=== PATIENT | female | born 2000 | race Caucasian/White ===

== ENCOUNTER 2021-03-21 09:55 | Inpatient (IN) ==
--- NOTE | 2021-03-21 13:27 | Anesthesiology Consultation ---
Date of Service March 21, 2021 Assessment & Plan Chart Review Chart Review: Acceptable Risk for Surgery and Patient NOT seen in Pre Admission Testing Consults Requested none ASA [id number] Proposed Anesthesia Anesthesia Type: Spinal History Height/Weight Height: 5 ft 8 in Weight: 77.111 kg Allergies Allergy/AdvReac Type Severity Reaction Status Date / Time cat dander Allergy Intermediate Itchy Verified 03/13/21 12:56 watery eyes and sneezing dog dander Allergy Intermediate Itchy Verified 03/13/21 12:56 watery eyes and sneezing house dust mite Allergy Intermediate Asthma Verified 03/13/21 12:56 exacerbation Medications Home Medications Medication Instructions Recorded Confirmed Last Taken vit no.133-ferrous 1 tab PO DAILY 12/29/20 03/21/21 03/12/21 09:00 fumarate 28 mg-folic acid 800 mcg tablet () ondansetron HCl 4 mg tablet 4 mg PO Q6H PRN 03/13/21 03/21/21 03/13/21 11:00 (Zofran) sertraline 25 mg tablet (Zoloft) 25 mg PO DAILY 03/13/21 03/21/21 03/20/21 Past Medical History Medical History Anxiety and depression zoloft and medical marijuana Asthma Right-sided chest wall pain Exercise / Class Metabolic Activity II 4-5 Yardwork/Stairs/Walk up hill Past Family History Family History Other Family history normal Past Surgical History Surgical History History of tonsillectomy Hx laparoscopic cholecystectomy 2019 Past Anesthesia History No Hx of Anesthesia Complications and No Family Hx of Anesthesia Complications History of PONV No Hx of PONV and No Hx of Motion Sickness Social History Smoking Status: Current every day smoker tobacco type: e-cigarettes Smoking cigarettes per day: vapes several times a day Hx Alcohol Use: No Hx Substance Use: No substance use type: marijuana Substance Use Type Other:: medical marijuana Last Used Substance: Days (ago) Last Used Substance Other:: 03/13/21 Physical Exam Vital Signs Last Vital Signs Temp 36.9 C 03/21/21 10:41 Pulse 69 03/21/21 13:23 Resp 20 03/21/21 11:30 BP 118/68 03/21/21 13:04 Pulse Ox 96 03/21/21 13:23
[2021-03-21] MEDS ORDERED: LACTATED RINGER'S 1,000 ML IV ONE (13:30)
[2021-03-21] MEDS ORDERED: LACTATED RINGER'S 1,000 ML IV SCH (14:15)
[2021-03-21] MEDS ORDERED: CITRIC ACID/SODIUM CITRATE 15 ML UDC ONE (14:20)
[2021-03-21 14:22] LABS: Basophils # (auto) 0.01 K/uL (0-0.2); Basophils % (auto) 0.1 %; Eosinophils # (auto) 0.05 K/uL (0-0.5); Eosinophils % (auto) 0.4 %; Hematocrit (blood only) 32.6 % (37-47); Hemoglobin 10.8 g/dL (12.0-16.0); Immature Granulocytes # (auto) 0.03 K/uL (0.00-0.02); Immature Granulocytes % (auto) 0.2 %; Lymphocytes # (auto) 1.57 K/uL (1.2-3.4); Mean Corpuscular Hemoglobin 29.7 pg (25-34); Mean Corpuscular Volume 89.6 fL (80-100); Mean Platelet Volume 10.2 fL (7.4-10.4); Monocytes # (auto) 0.61 K/uL (0.11-0.59); Neutrophils # (auto) 9.85 K/uL (1.4-6.5); Neutrophils % (auto) 81.3 %; Platelet Count 234 K/uL (130-400); RDW Coefficient of Variation 13.8 % (11.5-14.5); RDW Standard Deviation 44.9 fL (36.4-46.3); Red Blood Count 3.64 M/uL (4.2-5.4); White Blood Count 12.12 K/uL (4.8-10.8)
[2021-03-21] MEDS ORDERED: OXYTOCIN 10 UNITS/ML VIAL ONE ×3 (14:25→14:56)
[2021-03-21] MEDS ORDERED: PHENYLEPHRINE 100MCG/ML 5ML SYR ONE (14:25)
[2021-03-21] MEDS ORDERED: fentaNYL citrate 100 MCG/2 ML VIAL ONE (14:25)
[2021-03-21] MEDS ORDERED: MoRPHine SULFATE PF 1 MG/ML 10 ML AMP/VIAL ONE (14:26)
[2021-03-21 14:30] LABS: Mean Corpuscular Hgb Conc 33.1 g/dL (32-36)
[2021-03-21] MEDS ORDERED: ceFAZolin 2000MG 2,000 MG/15 ML SYR IV SCH (14:30)
[2021-03-21] MEDS ORDERED: CITRIC ACID/SODIUM CITRATE 15 ML UDC PO SCH (14:30)
[2021-03-21] MEDS ORDERED: ONDANSETRON INJ 2 MG/ML 2 ML VIAL ONE (15:04)
[2021-03-21] MEDS ORDERED: DEXAMETHASONE SOD INJ 4 MG/ML VIAL ONE (15:05)
[2021-03-21] MEDS ORDERED: PROMETHAZINE HCL INJ 25 MG/ML 1 ML VIAL ONE (15:07)
[2021-03-21] MEDS ORDERED: miSOPROStoL 200 MCG TAB ONE (15:29)
[2021-03-21 15:37] LABS: Base Excess Cord Arterial Bld -1.9 mEq/L (-9-1.8); CO2 Cord Arterial Blood 44 mmHg (39.1-73.5); HCO3 Cord Arterial Blood 24 mmol/L (19.7-28.5); PO2 Cord Arterial Blood 19 mmHg (4.1-31.7); pH Cord Arterial Blood 7.35 (7.1-7.38)
[2021-03-21 15:40] LABS: Base Excess Cord Venous Blood -1.3 mEq/L (-7.7-1.9); Cord Venous Blood HCO3 25 mmol/L (18.4-26.8); Cord Venous Blood PCO2 48 mmHg (30.4-57.2); Cord Venous Blood PO2 18 mmHg (14.1-43.3); Cord Venous Blood pH 7.34 (7.20-7.44)
[2021-03-21] MEDS ORDERED: NALOXONE HCL 1 MG in SODIUM CHLORIDE 0.9% 1000ML 1,000 ML IV PRN (15:40)
[2021-03-21] MEDS ORDERED: PROMETHAZINE HCL 25 MG in SODIUM CHLORIDE 0.9% 50 ML IV PRN ×2 (15:40→15:51)
[2021-03-21] MEDS ORDERED: ePHEDrine sulfate 50 MG/ML AMP IV PRN (15:40)
[2021-03-21] MEDS ORDERED: NALBUPHINE HCL INJ 10 MG/ML AMP IV PRN (15:40)
[2021-03-21] MEDS ORDERED: MoRPHine SULFATE PF 1 MG/ML 10 ML AMP/VIAL INT SPINAL ONE (15:40)
[2021-03-21] MEDS ORDERED: ONDANSETRON INJ 2 MG/ML 2 ML VIAL IV PRN (15:40)
[2021-03-21] MEDS ORDERED: LACTATED RINGER'S 500 ML IV PRN (15:40)
[2021-03-21] MEDS ORDERED: KETOROLAC 30 MG/ML VIAL IV PRN (15:40)
[2021-03-21] MEDS ORDERED: NALOXONE HCL 0.4 MG/1 ML VIAL/CARP IV PRN (15:40)
[2021-03-21] MEDS ORDERED: NALOXONE HCL 0.08 MG in SYRINGE 1.8 ML IV PRN (15:40)
[2021-03-21 15:41] LABS: O2 Saturation Cord Venous Bld < 60.0 % (<68); Oxygen Sat Cord Arterial Blood < 60.0 % (<60)
[2021-03-21] MEDS ORDERED: NO NARCOTICS OR SEDATIVES SCH (15:45)
[2021-03-21] MEDS ORDERED: SODIUM CHLORIDE 0.9% 1000ML 1,000 ML IV SCH (15:45)
[2021-03-21] MEDS ORDERED: SUPERCREAM 0.870% 15 GM JAR EXT PRN (15:51)
[2021-03-21] MEDS ORDERED: SENNA 8.6 MG TAB PO PRN (15:51)
[2021-03-21] MEDS ORDERED: BENZOCAINE 20% AER SPR 82.5 GM CAN EXT PRN (15:51)
[2021-03-21] MEDS ORDERED: MAGNESIUM HYDROXIDE SUSP 30 ML UDC PO PRN (15:51)
[2021-03-21] MEDS ORDERED: ZOLPIDEM TARTRATE 5 MG TAB PO PRN (15:51)
[2021-03-21] MEDS ORDERED: HYDROCORTISONE ACETATE 25 MG SUPP PR PRN (15:51)
[2021-03-21] MEDS: diphenhydrAMINE 50 MG/ML VIAL IV PRN (16:13)
--- NOTE | 2021-03-21 16:36 | Operative Report (OR) ---
DATE OF PROCEDURE: 03/21/2021. INDICATION FOR SURGERY: This is a 30-year-old G1, P0, presented to labor and delivery at term for la darnell check. Infant had nonreassuring heart rate with persistent low baseline that was nonreassu ring. Decision was therefore made to perform section. PREOPERATIVE DIAGNOSES: 1. at term. 2. Nonreassuring heart rate, remote from delivery. POSTOPERATIVE DIAGNOSES: 1. at term. 2. Nonreassuring heart rate, remote from delivery. SURGEON: Clint Washington MD. SURVEILLANCE SPECIALIST: ____. ATTESTATION FOR SURVEILLANCE SPECIALIST: Used Car Sales Manager was necessary to help with retraction and provide better visual ization for safe surgery. ESTIMATED BLOOD LOSS: 600 mL. INTRAVENOUS FLUIDS: 1700 mL. URINE OUTPUT: 300 mL, clear urine at end of procedure. FINDINGS: Live infant male in cephalic presentation. There was no nuchal cord. 's weight is p ending, Apgars 9 and 10. Uterus adnexa and abdomen appeared grossly normal. COMPLICATIONS: None. DRAINS: Adkins catheter. ANESTHESIA: Dr Moy. ____ is attending. PATHOLOGY: 1 placenta, cord blood and cord gas. DESCRIPTION OF PROCEDURE: The patient was taken to the operating room where she was prepped and drap ed in normal sterile fashion in dorsal lithotomy position. Time-out was called. Pfannenstiel incisio n was made with a scalpel, carried down to the fascia. Fascia was incised in the midline and extende d laterally on both sides. Fascia was sharply dissected off the rectus abdominis muscle. Peritoneum was identified and entered sharply. Once inside the abdomen, an Marlon retractor was placed for ret raction. Vesicouterine peritoneum was sharply dissected off the lower segment of the uterus. Low tr ansverse incision was made with a scalpel. This was extended laterally on both sides with bandage sc issors. was delivered. Cord was clamped and cut. Cord blood was obtained. was monae d off to the pediatric team. Details of the 's information is in the pediatric record. Placenta was manually removed. Uterus exteriorized and cleared of all clots and debris. Uterus was closed in two layers with Vicryl stitch. There was good hemostasis post-closure. Copious amount of irrigation used to irrigate the abdomen. The vesicouterine peritoneum was reapproximated with 2-0 pl ain. Uterus was returned into the abdominal cavity and left retractor was removed. Peritoneum was c losed in a running fashion using plain suture. Fascia was reapproximated using Vicryl stitch. Subcu taneous space was reapproximated using plain suture and the skin was closed with 4-0 Monocryl. All instruments were removed from the abdomen and accounted for x2 including sponges, needles and ret ractors. Job ID: [id number]
--- NOTE | 2021-03-21 16:38 | Anesthesiology Progress Note ---
Date of Service March 21, 2021 Anesthesia Post Procedure Vital Signs Vital Signs: Temp Pulse Resp BP Pulse Ox 03/21/21 16:34 84 99 03/21/21 16:29 105 H 98 03/21/21 16:24 136 H 98 03/21/21 16:19 145 H 98 03/21/21 16:18 160 H 163/95 H 03/21/21 16:14 149 H 97 03/21/21 16:06 151 H 92 03/21/21 16:05 150 H 96 03/21/21 16:01 146 H 92 03/21/21 16:00 141 H 97 03/21/21 15:57 173/139 H 03/21/21 15:55 143 H 22 95 03/21/21 15:50 130 H 99 03/21/21 15:46 77 139/79 03/21/21 15:45 36.5 C 80 24 98 03/21/21 15:42 92 H 169/127 H 98 03/21/21 14:23 87 99 03/21/21 14:21 64 93 03/21/21 14:18 68 98 03/21/21 14:14 57 L 135/74 03/21/21 14:13 63 98 03/21/21 14:08 69 86 L 03/21/21 14:05 68 94 03/21/21 14:03 64 91 03/21/21 13:59 50 L 123/66 94 03/21/21 13:58 61 98 03/21/21 13:53 47 L 94 03/21/21 13:48 55 L 95 03/21/21 13:44 50 L 116/60 03/21/21 13:43 57 L 96 03/21/21 13:38 51 L 99 03/21/21 13:33 55 L 99 03/21/21 13:29 46 L 124/76 03/21/21 13:28 58 L 97 03/21/21 13:23 69 96 03/21/21 13:17 64 100 03/21/21 13:12 60 100 03/21/21 13:07 60 100 03/21/21 13:06 82 91 03/21/21 13:04 69 118/68 03/21/21 13:02 68 100 03/21/21 11:30 20 03/21/21 10:41 36.9 C 20 03/21/21 10:22 68 120/63 Transfer of Care Handoff Completed per policy Notes Mental Status: alert / awake / arousable Patient Amnestic to Procedure: Yes Nausea / Vomiting: adequately controlled Pain: adequately controlled Airway Patency, RR, SpO2: stable & adequate BP & HR: stable & adequate Hydration State: stable & adequate Neuraxial Anesthesia: was administered and sensory block is resolving Anesthetic Complications: no major complications apparent
[2021-03-21] MEDS: OXYTOCIN 20 UNITS in LACTATED RINGER'S 1,000 ML IV SCH (16:47)
[2021-03-21] MEDS: SIMETHICONE 80 MG CHEW PO SCH ×2 (18:07→22:23)
[2021-03-21 20:12] LABS: Amphetamines+Metham, Urine Neg (Neg); Barbiturates, Urine Neg (Neg); Benzodiazepine, Urine Neg (Neg); Cocaine, Urine Neg (Neg); MDMA (Ecstacy), Urine Neg (Neg); Methadone, Urine Neg (Neg); Opiate, Urine Pos (Neg); Phencyclidine, Urine Neg (Neg)
[2021-03-21] MEDS: DOCUSATE SODIUM 100 MG CAP PO SCH (22:23)
[2021-03-22] MEDS: OXYTOCIN 20 UNITS in LACTATED RINGER'S 1,000 ML IV SCH (00:50)
[2021-03-22 07:26] LABS: Basophils # (auto) 0.01 K/uL (0-0.2); Basophils % (auto) 0.1 %; Eosinophils # (auto) 0.02 K/uL (0-0.5); Eosinophils % (auto) 0.1 %; Hematocrit (blood only) 26.8 % (37-47); Hemoglobin 8.8 g/dL (12.0-16.0); Immature Granulocytes # (auto) 0.03 K/uL (0.00-0.02); Immature Granulocytes % (auto) 0.2 %; Lymphocytes # (auto) 1.75 K/uL (1.2-3.4); Lymphocytes % (auto) 11.9 %; Mean Corpuscular Hemoglobin 29.3 pg (25-34); Mean Corpuscular Hgb Conc 32.8 g/dL (32-36); Mean Corpuscular Volume 89.3 fL (80-100); Mean Platelet Volume 10.3 fL (7.4-10.4); Monocytes # (auto) 0.99 K/uL (0.11-0.59); Monocytes % (auto) 6.7 %; Neutrophils # (auto) 11.87 K/uL (1.4-6.5); Platelet Count 188 K/uL (130-400); RDW Coefficient of Variation 13.8 % (11.5-14.5); RDW Standard Deviation 45.4 fL (36.4-46.3); White Blood Count 14.67 K/uL (4.8-10.8)
[2021-03-22] MEDS: FERROUS SULFATE 325 MG TAB PO SCH (08:43)
[2021-03-22] MEDS: DOCUSATE SODIUM 100 MG CAP PO SCH ×2 (08:43→20:39)
[2021-03-22] MEDS: SIMETHICONE 80 MG CHEW PO SCH ×3 (08:43→20:38)
[2021-03-22] MEDS: PRENATAL VITAMIN 1 TAB PO SCH (08:43)
[2021-03-22] MEDS: diphenhydrAMINE 50 MG/ML VIAL IV PRN (08:44)
[2021-03-22] MEDS ORDERED: DIPHTHERIA/TETANUS/PERTUSSIS 0.5 ML SYR/VIAL IM ONE (09:00)
[2021-03-22] MEDS ORDERED: diphenhydrAMINE 50 MG/ML VIAL IV PRN (09:40)
[2021-03-22] MEDS ORDERED: diphenhydrAMINE Capsule 25 MG CAP PO PRN (09:40)
[2021-03-22] MEDS ORDERED: DC INTRASPINAL MORPHINE SCH (09:40)
[2021-03-22] MEDS ORDERED: PROMETHAZINE HCL 25 MG in SODIUM CHLORIDE 0.9% 50 ML IV PRN (09:40)
[2021-03-22] MEDS ORDERED: ZOLPIDEM TARTRATE 5 MG TAB PO PRN (09:40)
[2021-03-22] MEDS ORDERED: ONDANSETRON INJ 2 MG/ML 2 ML VIAL IV PRN (09:40)
--- NOTE | 2021-03-22 13:07 | Obstetrical Progress Note ---
Date of Service March 22, 2021 Assessment & Plan Admission and Anticipated Discharge Date Admission Date: March 21, 2021 Subjective abdomen soft and non tender ambulating well no calf tenderness vaginal bleeding scant hgb 8.8 Results & Data ([facility]) Vital Signs (Past 12 Hours) Vital Signs Temp Pulse Resp BP Pulse Ox 03/22/21 11:57 36.9 C 64 16 112/70 03/22/21 08:45 36.8 C 66 16 110/67 98 03/22/21 06:11 18 100 03/22/21 05:00 18 100 03/22/21 04:00 18 100 03/22/21 02:45 36.5 C 55 L 18 117/76 99 03/22/21 02:00 16 95
[2021-03-22] MEDS: oxyCODONE/ACETAMINOPHEN 5mg/325mg TAB PO PRN ×2 (16:14→20:39)
[2021-03-22] MEDS ORDERED: bisacodyL 5 MG TABEC PO SCH (20:00)
[2021-03-22] MEDS: IBUPROFEN 600 MG TAB PO PRN (20:38)
[2021-03-23] MEDS: oxyCODONE/ACETAMINOPHEN 5mg/325mg TAB PO PRN ×6 (00:34→20:20)
[2021-03-23] MEDS: IBUPROFEN 600 MG TAB PO PRN ×6 (00:34→20:21)
[2021-03-23 06:43] LABS: Hematocrit (blood only) 27.4 % (37-47); Hemoglobin 8.6 g/dL (12.0-16.0)
[2021-03-23] MEDS ORDERED: MAGNESIUM HYDROXIDE SUSP 30 ML UDC PO PRN (08:19)
--- NOTE | 2021-03-23 08:22 | Obstetrical Progress Note ---
Date of Service March 23, 2021 Assessment & Plan Admission and Anticipated Discharge Date Admission Date: March 21, 2021 Subjective Patient is seen and examined. She feels well, complains of back pain and unable to pass gas. Pain is under control with oral meds. Ambulating without dizziness. Voiding without difficulty Tolerating regular diet with out N&V Flatus none BM none Bleeding is minimal No fever/ chills/ CP/ SOB/ N&V/ Leg pain Breast and bottle feeding without problems Vital Signs Temp Pulse Pulse Resp BP Pulse Ox 03/22/21 23:00 36.8 C 77 18 119/61 99 03/22/21 20:30 36.8 C 75 18 112/70 98 03/22/21 16:00 37 C 59 L 16 116/63 98 03/22/21 11:57 36.9 C 64 16 112/70 03/22/21 08:45 36.8 C 66 16 110/67 98 Lab Results 03/21/21 03/21/21 03/21/21 Range/Units 13:50 13:50 13:55 WBC (4.8-10.8) K/uL RBC (4.2-5.4) M/uL Hgb (12.0-16.0) g/dL Hct (37-47) % MCV (80-100) fL MCH (25-34) pg MCHC (32-36) g/dL RDW Std Deviation (36.4-46.3) fL RDW Coeff of Naheed (11.5-14.5) % Plt Count (130-400) K/uL MPV (7.4-10.4) fL Immature Gran % (Auto) % Neut % (Auto) % Lymph % (Auto) % Taney % (Auto) % Eos % (Auto) % Baso % (Auto) % Neut # (Auto) (1.4-6.5) K/uL Lymph # (Auto) (1.2-3.4) K/uL Taney # (Auto) (0.11-0.59) K/uL Eos # (Auto) (0-0.5) K/uL Baso # (Auto) (0-0.2) K/uL Immature Gran # (Auto) (0.00-0.02) K/uL Cord ABG pH (7.1-7.38) Cord ABG pCO2 (39.1-73.5) mmHg Cord ABG pO2 (4.1-31.7) mmHg Cord ABG HCO3 (19.7-28.5) mmol/L Cord ABG Base Excess (-9-1.8) mEq/L Cord ABG O2 Sat (<60) % Cord VBG pH (7.20-7.44) Cord VBG pCO2 (30.4-57.2) mmHg Cord VBG pO2 (14.1-43.3) mmHg Cord VBG HCO3 (18.4-26.8) mmol/L Cord VBG Base Excess (-7.7-1.9) mEq/L Cord VBG O2 Sat (<68) % Barometric Pressure mm/Hg Blood Gas Comments POC Glucose 75 (70-99) mg/dl Urine Opiates Screen (Neg) Ur Methadone, Qual (Neg) Urine Barbiturates (Neg) Ur Phencyclidine (PCP) (Neg) U Amphetamin/Meth Scrn (Neg) MDMA (Ecstasy) Screen (Neg) U Benzodiazepines Scrn (Neg) Ur Cocaine Metabolite (Neg) U Marijuana (THC) Screen (Neg) COVID[facility]19 [facility] SARS-CoV-2, RNA, NAAT NEGATIVE (NEGATIVE) Blood Type Antibody Screen 03/21/21 03/21/21 03/21/21 Range/Units 14:10 14:10 14:49 WBC 12.12 H (4.8-10.8) K/uL RBC 3.64 L (4.2-5.4) M/uL Hgb 10.8 L (12.0-16.0) g/dL Hct 32.6 L (37-47) % MCV 89.6 (80-100) fL MCH 29.7 (25-34) pg MCHC 33.1 (32-36) g/dL RDW Std Deviation 44.9 (36.4-46.3) fL RDW Coeff of Naheed 13.8 (11.5-14.5) % Plt Count 234 (130-400) K/uL MPV 10.2 (7.4-10.4) fL Immature Gran % (Auto) 0.2 % Neut % (Auto) 81.3 % Lymph % (Auto) 13.0 % Taney % (Auto) 5.0 % Eos % (Auto) 0.4 % Baso % (Auto) 0.1 % Neut # (Auto) 9.85 H (1.4-6.5) K/uL Lymph # (Auto) 1.57 (1.2-3.4) K/uL Taney # (Auto) 0.61 H (0.11-0.59) K/uL Eos # (Auto) 0.05 (0-0.5) K/uL Baso # (Auto) 0.01 (0-0.2) K/uL Immature Gran # (Auto) 0.03 H (0.00-0.02) K/uL Cord ABG pH 7.35 (7.1-7.38) Cord ABG pCO2 44 (39.1-73.5) mmHg Cord ABG pO2 19 (4.1-31.7) mmHg Cord ABG HCO3 24 (19.7-28.5) mmol/L Cord ABG Base Excess -1.9 (-9-1.8) mEq/L Cord ABG O2 Sat < 60.0 (<60) % Cord VBG pH (7.20-7.44) Cord VBG pCO2 (30.4-57.2) mmHg Cord VBG pO2 (14.1-43.3) mmHg Cord VBG HCO3 (18.4-26.8) mmol/L Cord VBG Base Excess (-7.7-1.9) mEq/L Cord VBG O2 Sat (<68) % Barometric Pressure 732.6 mm/Hg Blood Gas Comments INFANT A POC Glucose (70-99) mg/dl Urine Opiates Screen (Neg) Ur Methadone, Qual (Neg) Urine Barbiturates (Neg) Ur Phencyclidine (PCP) (Neg) U Amphetamin/Meth Scrn (Neg) MDMA (Ecstasy) Screen (Neg) U Benzodiazepines Scrn (Neg) Ur Cocaine Metabolite (Neg) U Marijuana (THC) Screen (Neg) COVID-19 Eval Order SARS-CoV-2, RNA, NAAT (NEGATIVE) Blood Type A Positive Antibody Screen NEGATIVE 03/21/21 03/21/21 03/22/21 Range/Units 14:49 19:32 07:03 WBC 14.67 H (4.8-10.8) K/uL RBC 3.00 L (4.2-5.4) M/uL Hgb 8.8 L (12.0-16.0) g/dL Hct 26.8 L (37-47) % MCV 89.3 (80-100) fL MCH 29.3 (25-34) pg MCHC 32.8 (32-36) g/dL RDW Std Deviation 45.4 (36.4-46.3) fL RDW Coeff of Naheed 13.8 (11.5-14.5) % Plt Count 188 (130-400) K/uL MPV 10.3 (7.4-10.4) fL Immature Gran % (Auto) 0.2 % Neut % (Auto) 81.0 % Lymph % (Auto) 11.9 % Taney % (Auto) 6.7 % Eos % (Auto) 0.1 % Baso % (Auto) 0.1 % Neut # (Auto) 11.87 H (1.4-6.5) K/uL Lymph # (Auto) 1.75 (1.2-3.4) K/uL Taney # (Auto) 0.99 H (0.11-0.59) K/uL Eos # (Auto) 0.02 (0-0.5) K/uL Baso # (Auto) 0.01 (0-0.2) K/uL Immature Gran # (Auto) 0.03 H (0.00-0.02) K/uL Cord ABG pH (7.1-7.38) Cord ABG pCO2 (39.1-73.5) mmHg Cord ABG pO2 (4.1-31.7) mmHg Cord ABG HCO3 (19.7-28.5) mmol/L Cord ABG Base Excess (-9-1.8) mEq/L Cord ABG O2 Sat (<60) % Cord VBG pH 7.34 (7.20-7.44) Cord VBG pCO2 48 (30.4-57.2) mmHg Cord VBG pO2 18 (14.1-43.3) mmHg Cord VBG HCO3 25 (18.4-26.8) mmol/L Cord VBG Base Excess -1.3 (-7.7-1.9) mEq/L Cord VBG O2 Sat < 60.0 (<68) % Barometric Pressure 732.5 mm/Hg Blood Gas Comments INFANT A POC Glucose (70-99) mg/dl Urine Opiates Screen Pos H (Neg) Ur Methadone, Qual Neg (Neg) Urine Barbiturates Neg (Neg) Ur Phencyclidine (PCP) Neg (Neg) U Amphetamin/Meth Scrn Neg (Neg) MDMA (Ecstasy) Screen Neg (Neg) U Benzodiazepines Scrn Neg (Neg) Ur Cocaine Metabolite Neg (Neg) U Marijuana (THC) Screen Pos H (Neg) COVID-19 Eval Order SARS-CoV-2, RNA, NAAT (NEGATIVE) Blood Type Antibody Screen 03/23/21 Range/Units 06:04 WBC (4.8-10.8) K/uL RBC (4.2-5.4) M/uL Hgb 8.6 L (12.0-16.0) g/dL Hct 27.4 L (37-47) % MCV (80-100) fL MCH (25-34) pg MCHC (32-36) g/dL RDW Std Deviation (36.4-46.3) fL RDW Coeff of Naheed (11.5-14.5) % Plt Count (130-400) K/uL MPV (7.4-10.4) fL Immature Gran % (Auto) % Neut % (Auto) % Lymph % (Auto) % Taney % (Auto) % Eos % (Auto) % Baso % (Auto) % Neut # (Auto) (1.4-6.5) K/uL Lymph # (Auto) (1.2-3.4) K/uL Taney # (Auto) (0.11-0.59) K/uL Eos # (Auto) (0-0.5) K/uL Baso # (Auto) (0-0.2) K/uL Immature Gran # (Auto) (0.00-0.02) K/uL Cord ABG pH (7.1-7.38) Cord ABG pCO2 (39.1-73.5) mmHg Cord ABG pO2 (4.1-31.7) mmHg Cord ABG HCO3 (19.7-28.5) mmol/L Cord ABG Base Excess (-9-1.8) mEq/L Cord ABG O2 Sat (<60) % Cord VBG pH (7.20-7.44) Cord VBG pCO2 (30.4-57.2) mmHg Cord VBG pO2 (14.1-43.3) mmHg Cord VBG HCO3 (18.4-26.8) mmol/L Cord VBG Base Excess (-7.7-1.9) mEq/L Cord VBG O2 Sat (<68) % Barometric Pressure mm/Hg Blood Gas Comments POC Glucose (70-99) mg/dl Urine Opiates Screen (Neg) Ur Methadone, Qual (Neg) Urine Barbiturates (Neg) Ur Phencyclidine (PCP) (Neg) U Amphetamin/Meth Scrn (Neg) MDMA (Ecstasy) Screen (Neg) U Benzodiazepines Scrn (Neg) Ur Cocaine Metabolite (Neg) U Marijuana (THC) Screen (Neg) COVID-19 Eval Order SARS-CoV-2, RNA, NAAT (NEGATIVE) Blood Type Antibody Screen PE: General: Alert, orientedx3, NAD CVS: S1S2 RRR Lungs; CTAB Abd: soft, NT, mildly distended, BS+, fundus firm, below Umbilicus Incision: Clean, dry, intact Perineum intact, Lochia rubra minimal Ext; NT, no edema AP: 20 yo s/p C Section, pod# 2 VSS Afebrile doing well Continue routine postop care Encourage ambulation, PO intake MOM for constipation All questions were answered D/C home tomorrow Results & Data ([facility]) Vital Signs (Past 12 Hours) Vital Signs Temp Pulse Resp BP Pulse Ox 03/22/21 23:00 36.8 C 77 18 119/61 99 03/22/21 20:30 36.8 C 75 18 112/70 98
[2021-03-23] MEDS: SIMETHICONE 80 MG CHEW PO SCH ×5 (08:46→20:20)
[2021-03-23] MEDS: FERROUS SULFATE 325 MG TAB PO SCH (08:46)
[2021-03-23] MEDS: DOCUSATE SODIUM 100 MG CAP PO SCH ×2 (08:46→20:20)
[2021-03-23] MEDS: PRENATAL VITAMIN 1 TAB PO SCH (08:46)
[2021-03-23] MEDS ORDERED: SERTRALINE HCL 50 MG TABLET PO ONE (12:17)
[2021-03-23] MEDS ORDERED: bisacodyL 10 MG SUPP PR PRN (15:51)
[2021-03-23 23:41] LABS: Codeine Urine NEGATIVE ng/mL (<50); Hydrocodone Urine NEGATIVE ng/mL (<50); Hydromor Urine NEGATIVE ng/mL (<50); Marijuana Quant, GCMS Urine 273 ng/mL (<5); Morphine Urine 132 ng/mL (<50); Norhydrocodone Conf Ur NEGATIVE ng/mL (<50); Noroxycodone Urine NEGATIVE ng/mL (<50); Oxycodone Urine NEGATIVE ng/mL (<50); Oxymorph Urine NEGATIVE ng/mL (<50)
[2021-03-24] MEDS: oxyCODONE/ACETAMINOPHEN 5mg/325mg TAB PO PRN ×3 (02:58→13:15)
[2021-03-24] MEDS: IBUPROFEN 600 MG TAB PO PRN ×3 (02:59→13:16)
[2021-03-24 06:15] LABS: Eosinophils # (auto) 0.15 K/uL (0-0.5); Eosinophils % (auto) 1.6 %; Hematocrit (blood only) 27.1 % (37-47); Hemoglobin 8.7 g/dL (12.0-16.0); Immature Granulocytes # (auto) 0.02 K/uL (0.00-0.02); Immature Granulocytes % (auto) 0.2 %; Lymphocytes # (auto) 1.62 K/uL (1.2-3.4); Lymphocytes % (auto) 16.8 %; Mean Corpuscular Hemoglobin 29.4 pg (25-34); Mean Corpuscular Hgb Conc 32.1 g/dL (32-36); Mean Corpuscular Volume 91.6 fL (80-100); Mean Platelet Volume 9.2 fL (7.4-10.4); Monocytes # (auto) 0.53 K/uL (0.11-0.59); Monocytes % (auto) 5.5 %; Neutrophils # (auto) 7.33 K/uL (1.4-6.5); Neutrophils % (auto) 75.9 %; Platelet Count 230 K/uL (130-400); RDW Coefficient of Variation 13.8 % (11.5-14.5); RDW Standard Deviation 46.2 fL (36.4-46.3); Red Blood Count 2.96 M/uL (4.2-5.4); White Blood Count 9.65 K/uL (4.8-10.8)
--- NOTE | 2021-03-24 06:42 | Obstetrical Progress Note ---
Date of Service March 24, 2021 Assessment & Plan Admission and Anticipated Discharge Date Admission Date: March 21, 2021 Subjective Patient is seen and examined. She feels well, no complaints. Mood is better, desires to continue her Zoloft. Pain is under control with oral meds. Ambulating without dizziness Voiding without difficulty Tolerating regular diet with out N&V Flatus + BM neg Declined to take MOM Bleeding is minimal No fever/ chills/ CP/ SOB/ N&V/ Leg pain Breast and bottle feeding without problems Vital Signs Temp Pulse Resp BP Pulse Ox 03/23/21 23:10 36.8 C 64 16 137/83 98 03/23/21 20:20 36.8 C 81 17 120/71 99 03/23/21 15:00 36.9 C 96 H 16 128/75 03/23/21 08:30 36.5 C 82 16 131/78 Lab Results 03/21/21 03/21/21 03/21/21 Range/Units 13:50 13:50 13:55 WBC (4.8-10.8) K/uL RBC (4.2-5.4) M/uL Hgb (12.0-16.0) g/dL Hct (37-47) % MCV (80-100) fL MCH (25-34) pg MCHC (32-36) g/dL RDW Std Deviation (36.4-46.3) fL RDW Coeff of Naheed (11.5-14.5) % Plt Count (130-400) K/uL MPV (7.4-10.4) fL Immature Gran % (Auto) % Neut % (Auto) % Lymph % (Auto) % Callahan % (Auto) % Eos % (Auto) % Baso % (Auto) % Neut # (Auto) (1.4-6.5) K/uL Lymph # (Auto) (1.2-3.4) K/uL Callahan # (Auto) (0.11-0.59) K/uL Eos # (Auto) (0-0.5) K/uL Baso # (Auto) (0-0.2) K/uL Immature Gran # (Auto) (0.00-0.02) K/uL Cord ABG pH (7.1-7.38) Cord ABG pCO2 (39.1-73.5) mmHg Cord ABG pO2 (4.1-31.7) mmHg Cord ABG HCO3 (19.7-28.5) mmol/L Cord ABG Base Excess (-9-1.8) mEq/L Cord ABG O2 Sat (<60) % Cord VBG pH (7.20-7.44) Cord VBG pCO2 (30.4-57.2) mmHg Cord VBG pO2 (14.1-43.3) mmHg Cord VBG HCO3 (18.4-26.8) mmol/L Cord VBG Base Excess (-7.7-1.9) mEq/L Cord VBG O2 Sat (<68) % Barometric Pressure mm/Hg Blood Gas Comments POC Glucose 75 (70-99) mg/dl Urine Opiates Screen (Neg) U Codeine Confrm GC/MS (<50) ng/mL Ur Morphine (GC/MS) (<50) ng/mL Ur Hydrocodone (GC/MS) (<50) ng/mL Ur Norhydrocodone (<50) ng/mL Ur Noroxycodone (<50) ng/mL Urine Oxycodone (GC/MS) (<50) ng/mL U Oxymorphone GC/MS (<50) ng/mL Ur Methadone, Qual (Neg) Ur Hydromorphone (GC/MS) (<50) ng/mL Urine Barbiturates (Neg) Ur Phencyclidine (PCP) (Neg) U Amphetamin/Meth Scrn (Neg) MDMA (Ecstasy) Screen (Neg) U Benzodiazepines Scrn (Neg) Ur Cocaine Metabolite (Neg) U Marijuana (THC) Screen (Neg) U Marijuana THC Carboxy (<5) ng/mL Drug Screen Comment COVID-19 Eval Order Covid19 [facility] SARS-CoV-2, RNA, NAAT NEGATIVE (NEGATIVE) Blood Type Antibody Screen 03/21/21 03/21/21 03/21/21 Range/Units 14:10 14:10 14:49 WBC 12.12 H (4.8-10.8) K/uL RBC 3.64 L (4.2-5.4) M/uL Hgb 10.8 L (12.0-16.0) g/dL Hct 32.6 L (37-47) % MCV 89.6 (80-100) fL MCH 29.7 (25-34) pg MCHC 33.1 (32-36) g/dL RDW Std Deviation 44.9 (36.4-46.3) fL RDW Coeff of Naheed 13.8 (11.5-14.5) % Plt Count 234 (130-400) K/uL MPV 10.2 (7.4-10.4) fL Immature Gran % (Auto) 0.2 % Neut % (Auto) 81.3 % Lymph % (Auto) 13.0 % Callahan % (Auto) 5.0 % Eos % (Auto) 0.4 % Baso % (Auto) 0.1 % Neut # (Auto) 9.85 H (1.4-6.5) K/uL Lymph # (Auto) 1.57 (1.2-3.4) K/uL Callahan # (Auto) 0.61 H (0.11-0.59) K/uL Eos # (Auto) 0.05 (0-0.5) K/uL Baso # (Auto) 0.01 (0-0.2) K/uL Immature Gran # (Auto) 0.03 H (0.00-0.02) K/uL Cord ABG pH 7.35 (7.1-7.38) Cord ABG pCO2 44 (39.1-73.5) mmHg Cord ABG pO2 19 (4.1-31.7) mmHg Cord ABG HCO3 24 (19.7-28.5) mmol/L Cord ABG Base Excess -1.9 (-9-1.8) mEq/L Cord ABG O2 Sat < 60.0 (<60) % Cord VBG pH (7.20-7.44) Cord VBG pCO2 (30.4-57.2) mmHg Cord VBG pO2 (14.1-43.3) mmHg Cord VBG HCO3 (18.4-26.8) mmol/L Cord VBG Base Excess (-7.7-1.9) mEq/L Cord VBG O2 Sat (<68) % Barometric Pressure 732.6 mm/Hg Blood Gas Comments A POC Glucose (70-99) mg/dl Urine Opiates Screen (Neg) U Codeine Confrm GC/MS (<50) ng/mL Ur Morphine (GC/MS) (<50) ng/mL Ur Hydrocodone (GC/MS) (<50) ng/mL Ur Norhydrocodone (<50) ng/mL Ur Noroxycodone (<50) ng/mL Urine Oxycodone (GC/MS) (<50) ng/mL U Oxymorphone GC/MS (<50) ng/mL Ur Methadone, Qual (Neg) Ur Hydromorphone (GC/MS) (<50) ng/mL Urine Barbiturates (Neg) Ur Phencyclidine (PCP) (Neg) U Amphetamin/Meth Scrn (Neg) MDMA (Ecstasy) Screen (Neg) U Benzodiazepines Scrn (Neg) Ur Cocaine Metabolite (Neg) U Marijuana (THC) Screen (Neg) U Marijuana THC Carboxy (<5) ng/mL Drug Screen Comment COVID-19 Eval Order SARS-CoV-2, RNA, NAAT (NEGATIVE) Blood Type A Positive Antibody Screen NEGATIVE 03/21/21 03/21/21 03/21/21 Range/Units 14:49 19:32 19:32 WBC (4.8-10.8) K/uL RBC (4.2-5.4) M/uL Hgb (12.0-16.0) g/dL Hct (37-47) % MCV (80-100) fL MCH (25-34) pg MCHC (32-36) g/dL RDW Std Deviation (36.4-46.3) fL RDW Coeff of Naheed (11.5-14.5) % Plt Count (130-400) K/uL MPV (7.4-10.4) fL Immature Gran % (Auto) % Neut % (Auto) % Lymph % (Auto) % Callahan % (Auto) % Eos % (Auto) % Baso % (Auto) % Neut # (Auto) (1.4-6.5) K/uL Lymph # (Auto) (1.2-3.4) K/uL Callahan # (Auto) (0.11-0.59) K/uL Eos # (Auto) (0-0.5) K/uL Baso # (Auto) (0-0.2) K/uL Immature Gran # (Auto) (0.00-0.02) K/uL Cord ABG pH (7.1-7.38) Cord ABG pCO2 (39.1-73.5) mmHg Cord ABG pO2 (4.1-31.7) mmHg Cord ABG HCO3 (19.7-28.5) mmol/L Cord ABG Base Excess (-9-1.8) mEq/L Cord ABG O2 Sat (<60) % Cord VBG pH 7.34 (7.20-7.44) Cord VBG pCO2 48 (30.4-57.2) mmHg Cord VBG pO2 18 (14.1-43.3) mmHg Cord VBG HCO3 25 (18.4-26.8) mmol/L Cord VBG Base Excess -1.3 (-7.7-1.9) mEq/L Cord VBG O2 Sat < 60.0 (<68) % Barometric Pressure 732.5 mm/Hg Blood Gas Comments A POC Glucose (70-99) mg/dl Urine Opiates Screen Pos H (Neg) U Codeine Confrm GC/MS NEGATIVE (<50) ng/mL Ur Morphine (GC/MS) 132 H (<50) ng/mL Ur Hydrocodone (GC/MS) NEGATIVE (<50) ng/mL Ur Norhydrocodone NEGATIVE (<50) ng/mL Ur Noroxycodone NEGATIVE (<50) ng/mL Urine Oxycodone (GC/MS) NEGATIVE (<50) ng/mL U Oxymorphone GC/MS NEGATIVE (<50) ng/mL Ur Methadone, Qual Neg (Neg) Ur Hydromorphone (GC/MS) NEGATIVE (<50) ng/mL Urine Barbiturates Neg (Neg) Ur Phencyclidine (PCP) Neg (Neg) U Amphetamin/Meth Scrn Neg (Neg) MDMA (Ecstasy) Screen Neg (Neg) U Benzodiazepines Scrn Neg (Neg) Ur Cocaine Metabolite Neg (Neg) U Marijuana (THC) Screen Pos H (Neg) U Marijuana THC Carboxy 273 H (<5) ng/mL Drug Screen Comment SEE NOTE COVID-19 Eval Order SARS-CoV-2, RNA, NAAT (NEGATIVE) Blood Type Antibody Screen 03/22/21 03/23/21 03/24/21 Range/Units 07:03 06:04 06:00 WBC 14.67 H 9.65 (4.8-10.8) K/uL RBC 3.00 L 2.96 L (4.2-5.4) M/uL Hgb 8.8 L 8.6 L 8.7 L (12.0-16.0) g/dL Hct 26.8 L 27.4 L 27.1 L (37-47) % MCV 89.3 91.6 (80-100) fL MCH 29.3 29.4 (25-34) pg MCHC 32.8 32.1 (32-36) g/dL RDW Std Deviation 45.4 46.2 (36.4-46.3) fL RDW Coeff of Naheed 13.8 13.8 (11.5-14.5) % Plt Count 188 230 (130-400) K/uL MPV 10.3 9.2 (7.4-10.4) fL Immature Gran % (Auto) 0.2 0.2 % Neut % (Auto) 81.0 75.9 % Lymph % (Auto) 11.9 16.8 % Callahan % (Auto) 6.7 5.5 % Eos % (Auto) 0.1 1.6 % Baso % (Auto) 0.1 0.0 % Neut # (Auto) 11.87 H 7.33 H (1.4-6.5) K/uL Lymph # (Auto) 1.75 1.62 (1.2-3.4) K/uL Callahan # (Auto) 0.99 H 0.53 (0.11-0.59) K/uL Eos # (Auto) 0.02 0.15 (0-0.5) K/uL Baso # (Auto) 0.01 0.00 (0-0.2) K/uL Immature Gran # (Auto) 0.03 H 0.02 (0.00-0.02) K/uL Cord ABG pH (7.1-7.38) Cord ABG pCO2 (39.1-73.5) mmHg Cord ABG pO2 (4.1-31.7) mmHg Cord ABG HCO3 (19.7-28.5) mmol/L Cord ABG Base Excess (-9-1.8) mEq/L Cord ABG O2 Sat (<60) % Cord VBG pH (7.20-7.44) Cord VBG pCO2 (30.4-57.2) mmHg Cord VBG pO2 (14.1-43.3) mmHg Cord VBG HCO3 (18.4-26.8) mmol/L Cord VBG Base Excess (-7.7-1.9) mEq/L Cord VBG O2 Sat (<68) % Barometric Pressure mm/Hg Blood Gas Comments POC Glucose (70-99) mg/dl Urine Opiates Screen (Neg) U Codeine Confrm GC/MS (<50) ng/mL Ur Morphine (GC/MS) (<50) ng/mL Ur Hydrocodone (GC/MS) (<50) ng/mL Ur Norhydrocodone (<50) ng/mL Ur Noroxycodone (<50) ng/mL Urine Oxycodone (GC/MS) (<50) ng/mL U Oxymorphone GC/MS (<50) ng/mL Ur Methadone, Qual (Neg) Ur Hydromorphone (GC/MS) (<50) ng/mL Urine Barbiturates (Neg) Ur Phencyclidine (PCP) (Neg) U Amphetamin/Meth Scrn (Neg) MDMA (Ecstasy) Screen (Neg) U Benzodiazepines Scrn (Neg) Ur Cocaine Metabolite (Neg) U Marijuana (THC) Screen (Neg) U Marijuana THC Carboxy (<5) ng/mL Drug Screen Comment COVID-19 Eval Order SARS-CoV-2, RNA, NAAT (NEGATIVE) Blood Type Antibody Screen PE: General: Alert, orientedx3, NAD CVS: S1S2 RRR Lungs; CTAB Abd: soft, NT, ND, BS+, fundus firm, below Umbilicus Incision: Clean, dry, intact Perineum intact, Lochia rubra minimal Ext; NT, no edema AP: 20 yo s/p C Section, pod# 3 VSS Afebrile doing well Continue routine postop care Encourage ambulation, PO intake All questions were answered Discussed when to call. D/C home , f/u in office Results & Data ([place]) Vital Signs (Past 12 Hours) Vital Signs Temp Pulse Resp BP Pulse Ox 03/23/21 23:10 36.8 C 64 16 137/83 98 03/23/21 20:20 36.8 C 81 17 120/71 99
[2021-03-24] MEDS: SIMETHICONE 80 MG CHEW PO SCH ×2 (08:36→13:15)
[2021-03-24] MEDS: PRENATAL VITAMIN 1 TAB PO SCH (08:37)
[2021-03-24] MEDS: DOCUSATE SODIUM 100 MG CAP PO SCH (08:37)
[2021-03-24] MEDS: FERROUS SULFATE 325 MG TAB PO SCH (08:37)
[2021-03-24] MEDS ORDERED: SERTRALINE HCL 50 MG TABLET PO SCH (09:00)
--- NOTE | 2021-03-24 10:20 | Psychiatric Consultation ---
Date of Consultation March 24, 2021 Impression / Recommendations Impression This is a 20-year-old female, who is a new mom, presenting after a panic attack due to social dilemmas surrounding her recent and of child. Patient is currently on treatment for anxiety and depression and is willing to follow-up with outpatient services to continue therapy and medication management. She is cleared from a psychiatric perspective to be discharged. (1) Anxiety: Continue current medication Zoloft 50 mg p.o. daily Follow-up with outpatient services: Patient has a upcoming appointment on March 28 at 2 PM Risk Factors Assessment Male: No : No Do You Have Access To A Gun?: No Hopelessness: No Protective Factors Assessment Responsible for Young Children: Yes Stable Relationships: Yes Supportive Family: Yes Good Rapport with Provider: Yes Psych History Chief Complaint "I am okay". History of Present Illness HPI as per psychiatric liaison "Pt seen and interviewed. Psych consult ordered for panic attack. Pt had an episode today of panic in the context of the FOB wanting to come to the hospital abruptly demanding a DNA test and to see the baby. Other people were also contacting the patient and she felt pressure from them as well. Pt describes FOB (Prosper) as being uninvolved during the entire and often saying he will show up to appointments and not showing up. Pt states the FOB had a chance to be involved but she moved on and now has a supportive S.O. named Yovanny. She felt overwhelmed today. She was started on Zoloft by her provider Anny at [facility] at about 30 weeks into her . She describes feeling depressed and tearful at times as well as "wanting to run away" and she thought something was wrong with her. She is tearful talking about her depression and feels that she doesn't deserve the baby. She feels overwhelmed with the situation of the FOB and is afraid the FOB will try to get custody of the baby even though he has not mentioned this before. She denies suicidal thoughts to harm herself or others. She states she has been in therapy since middle school with a therapist named Yeny Ortega at "[facility]" in [place]. She describes the therapy as helpful. Family history is Dad with depression and drug use as well as a time when he "went missing" possibly with desire to harm himself. Mother has borderline personality disorder. Pt states she drinks alcohol occasionally. She denies other substance use. She does describe some depressive symptoms currently with sleep issues, feeling like a failure, trouble concentrating and feeling restless. She feels apprehensive about being a mother due to all of the things she doesn't know. Pt was given much support and information about depression was explained. She states she feels she has strong support in S.O. Yovanny as well as Yovanny's family. He appears quite supportive during the interview. Pt handles the baby gently and is showing positive affect when speaking about him. She is wanting to continue with therapy and medication after discharge. She is not displaying any panic symptoms during the interview." Upon evaluation this morning, patient endorses above information is accurate. She states that she is feeling better and is denying any panic attacks today. She is agreeable to continue with aftercare, both medications and therapy services. Denies SI HI, denies any hallucinations, paranoia or psychotic symptoms. Past Psychiatric History Do You Have Access To A Gun?: No Allergies Allergy/AdvReac Type Severity Reaction Status Date / Time cat dander Allergy Intermediate Itchy Verified 03/13/21 12:56 watery eyes and sneezing dog dander Allergy Intermediate Itchy Verified 03/13/21 12:56 watery eyes and sneezing house dust mite Allergy Intermediate Asthma Verified 03/13/21 12:56 exacerbation Home Medications Medication Instructions Recorded Confirmed Type vit no.133-ferrous 1 tab PO DAILY 12/29/20 03/21/21 History fumarate 28 mg-folic acid 800 mcg tablet () ondansetron HCl 4 mg tablet 4 mg PO Q6H PRN 03/13/21 03/21/21 History (Zofran) sertraline 25 mg tablet (Zoloft) 25 mg PO DAILY 03/13/21 03/21/21 History docusate sodium 100 mg capsule 100 mg PO DAILY@, #60 cap 03/23/21 Rx ferrous sulfate 325 mg (65 mg 325 mg PO DAILY@08 #40 tab 03/23/21 Rx iron) tablet,delayed release ibuprofen 600 mg tablet 600 mg PO Q6 #40 tab 03/23/21 Rx magnesium hydroxide 400 mg/5 mL 30 ml PO HS PRN #500 ml 03/23/21 Rx oral suspension (Milk of Magnesia) oxycodone-acetaminophen 5 mg-325 1 - 2 tab PO Q4H #20 tab 03/23/21 Rx mg tablet (Percocet) vits no.124-ferrous fum 1 tab PO DAILY@08 #90 tab 03/23/21 Rx 27 mg iron-folic acid 800 mcg tablet ( Vitamin) sertraline 50 mg tablet 25 mg PO QAM #30 tab 03/24/21 Rx Personal History Beliefs That Will Affect Care: None Patient History Medical History Anxiety and depression zoloft and medical marijuana Asthma Right-sided chest wall pain Surgical History History of tonsillectomy Hx laparoscopic cholecystectomy 2020 Family History Other Family history normal Social History (Updated 03/13/21 @ 12:56 by Evelia Boo RN) Smoking Status: Current every day smoker Tobacco Type: E-cigarettes / Vaping Cigarettes Per Day: vapes several times a day; Hx Alcohol Use: No Hx Substance Use: No Preferred Language: Chilean Communication Ability: 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 Beliefs That Will Affect Care: None marital status: Single Current Living Situation: Parent and Family current occupational status: unemployed Other Information That Helps Us Care for You: No Feels Safe at Home: Yes Safety Concerns: Feels Safe At This Time Assistive Devices: None Physical Exam Psychiatric: Orientation: alert and oriented x 3 Apperance: appropriately dressed and appropriately groomed Eye Contact: good eye contact Motor Behavior: no abnormal motor movements Speech: normal rate/rhythm/volume of speech Affect: euthymic affect Mood: no depressed mood and no dysphoric mood Thought Process: linear/logical thought process Thought Content: reality based without delusions Suicidal Thoughts: denies suicidal thoughts Homicidal Thoughts: denies homicidal thoughts Hallucinations: no auditory hallucinations and no visual hallucinations Cognition: recent memory grossly intact Estimated Intelligence: consistent with education level Insight: good insight Judgement: good judgement Vital Signs (Past 24 Hours): Last Vital Signs Temp 36.8 C 03/23/21 23:10 Pulse 64 03/23/21 23:10 Resp 16 03/23/21 23:10 BP 137/83 03/23/21 23:10 Pulse Ox 98 03/23/21 23:10 Review of Systems All systems reviewed & are unremarkable except as noted in HPI & below Results & Data (PSY) Medications Administered Diphenhydramine HCl (Diphenhydramine Capsule 25 Mg Cap) 25 mg PO QID PRN PRN Reason: Itching Stop: 04/21/21 09:39 Last Admin: 03/23/21 03:44 Dose: 25 mg Documented by: [id number] Docusate Sodium (Docusate Sodium 100 Mg Cap) 100 mg PO DAILY@ [facility] Stop: 04/20/21 20:59 Last Admin: 03/24/21 08:37 Dose: 100 mg Documented by: [id number] Admin: 03/23/21 20:20 Dose: 100 mg Documented by: [id number] Admin: 03/23/21 08:46 Dose: 100 mg Documented by: [id number] Admin: 03/22/21 20:39 Dose: 100 mg Documented by: [id number] Admin: 03/22/21 08:43 Dose: 100 mg Documented by: [id number] Admin: 03/21/21 22:23 Dose: 100 mg Documented by: [id number] Ferrous Sulfate (Ferrous Sulfate 325 Mg Tab) 325 mg PO DAILY@ [facility] Stop: 04/21/21 07:59 Last Admin: 03/24/21 08:37 Dose: 325 mg Documented by: [id number] Admin: 03/23/21 08:46 Dose: 325 mg Documented by: [id number] Admin: 03/22/21 08:43 Dose: 325 mg Documented by: [id number] Oxytocin 20 units/ Lactated (Ringer's) 1,002 mls @ 125 mls/hr IV .Q8H1M [facility] Stop: 04/20/21 15:59 Last Admin: 03/22/21 00:50 Dose: 125 mls/hr Documented by: [id number] Cosigned by: [id number] Infusion: 03/22/21 00:50 Dose: 0 mls/hr Documented by: [id number] Cosigned by: [id number] Admin: 03/21/21 16:47 Dose: 125 mls/hr Documented by: [id number] Cosigned by: [id number] Ibuprofen (Ibuprofen 600 Mg Tab) 600 mg PO Q4H PRN PRN Reason: Pain Stop: 04/20/21 15:50 Last Admin: 03/24/21 08:37 Dose: 600 mg Documented by: [id number] Admin: 03/24/21 02:59 Dose: 600 mg Documented by: [id number] Admin: 03/23/21 20:21 Dose: 600 mg Documented by: [id number] Admin: 03/23/21 16:18 Dose: 600 mg Documented by: [id number] Admin: 03/23/21 12:05 Dose: 600 mg Documented by: [id number] Admin: 03/23/21 08:49 Dose: 600 mg Documented by: [id number] Admin: 03/23/21 04:32 Dose: 600 mg Documented by: [id number] Admin: 03/23/21 00:34 Dose: 600 mg Documented by: [id number] Admin: 03/22/21 20:38 Dose: 600 mg Documented by: [id number] Oxycodone/Acetaminophen (Oxycodone/Acetaminophen 5mg/325mg Tab) 1 - 2 tab PO Q4H PRN PRN Reason: Pain Stop: 04/05/21 09:39 Last Admin: 03/24/21 08:38 Dose: 1 tab Documented by: [id number] Admin: 03/24/21 02:58 Dose: 1 tab Documented by: [id number] Admin: 03/23/21 20:20 Dose: 1 tab Documented by: [id number] Admin: 03/23/21 16:18 Dose: 1 tab Documented by: [id number] Admin: 03/23/21 12:05 Dose: 1 tab Documented by: [id number] Admin: 03/23/21 08:48 Dose: 1 tab Documented by: [id number] Admin: 03/23/21 04:31 Dose: 1 tab Documented by: [id number] Admin: 03/23/21 00:34 Dose: 2 tab Documented by: [id number] Admin: 03/22/21 20:39 Dose: 2 tab Documented by: [id number] Admin: 03/22/21 16:14 Dose: 1 tab Documented by: [id number] Prenat Multivit/Irwin/Iron/Folic Ac ( Vitamin 1 Tab) 1 tab PO DAILY@08 [facility] Stop: 04/21/21 07:59 Last Admin: 03/24/21 08:37 Dose: 1 tab Documented by: [id number] Admin: 03/23/21 08:46 Dose: 1 tab Documented by: [id number] Admin: 03/22/21 08:43 Dose: 1 tab Documented by: [id number] Sertraline HCl (Sertraline Hcl 50 Mg Tablet) 25 mg PO QAM [facility] Stop: 04/23/21 08:59 Last Admin: 03/24/21 08:39 Dose: 25 mg Documented by: [id number] Simethicone (Simethicone 80 Mg Chew) 80 mg PO DAILY@08,,, [facility] Stop: 04/20/21 16:59 Last Admin: 03/24/21 08:36 Dose: 80 mg Documented by: [id number] Admin: 03/23/21 20:20 Dose: 80 mg Documented by: [id number] Admin: 03/23/21 16:18 Dose: 80 mg Documented by: [id number] Admin: 03/23/21 12:58 Dose: 80 mg Documented by: [id number] Admin: 03/23/21 09:25 Dose: Not Given Documented by: [id number] Admin: 03/23/21 08:46 Dose: 80 mg Documented by: [id number] Admin: 03/22/21 20:38 Dose: 80 mg Documented by: [id number] Admin: 03/22/21 17:28 Dose: 80 mg Documented by: [id number] Admin: 03/22/21 08:43 Dose: 80 mg Documented by: [id number] Admin: 03/21/21 22:23 Dose: 80 mg Documented by: [id number] Admin: 03/21/21 18:07 Dose: Not Given Documented by: [id number] Coding Level of Care Code 78949 U Intl Hosp Care Lvl 2 Diagnoses Anxiety F41.9 Time Spent (min) 45
--- NOTE | 2021-04-04 11:50 | Discharge Summary (DS) ---
DATE OF ADMISSION: 03/21/2021 DATE OF DISCHARGE: 03/24/2021. CHIEF COMPLAINT: This is a 20-year-old G1, P0 who was admitted on 03/21/2021 in labor. ; steffanie royal, had nonreassuring heart rate with persistent low baseline. After several failed resuscitat ion, decision was therefore made to perform section. The patient went on to deliver a live . Weight and Apgars details are in the pediatric record. Surgery otherwise was unremarkable. She met all milestones in recovery and went on to be discharged on 03/24/2021 in stable condition. PAST MEDICAL HISTORY: The patient has a history of anxiety, depression, asthma. PAST SOCIAL HISTORY: The patient had tonsillectomy, laparoscopic cholecystectomy. SANITATION SUPERVISOR COMPLICATIONS: Patient's was complicated by history of subchorionic hemorrhage in t he first trimester. SOCIAL HISTORY: The patient is a smoker. Denies drug or alcohol use. FAMILY HISTORY: Noncontributory. ALLERGIES: Patient is allergic to no known medications. REVIEW OF SYSTEMS: Negative except as dictated in the HPI. PHYSICAL EXAMINATION: VITAL SIGNS: On 03/24/2021 showed blood pressure of 137/83, pulse of 64, respirations 16, temperatur e 36.8. HEART: S1 and S2, regular rhythm and rate. LUNGS: Clear to auscultation bilaterally. ABDOMEN: Nontender, nondistended. Incision was clean, dry and intact. EXTREMITIES: No cyanosis, clubbing or edema. LABORATORY DATA: On 03/24/2021 showed hemoglobin of 8.7, hematocrit of 27.1. CONDITION ON DISCHARGE: Stable. OPERATIONS: Primary section. DISCHARGE DIAGNOSES: 1. Postoperative section. 2. Anemia postop. PLAN ON DISCHARGE: The patient is discharged home with instructions, activity, diet, and followup ap pointment. Job ID: [id number]
== END 2021-03-24 16:30 | disposition home or self-care (01) | DRG 788 ==
LOC: OPB 09:55 → 4S1 09:56 → 4S2 18:00

== ENCOUNTER 2023-02-13 05:24 | Inpatient (IN) ==
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
[2023-02-13 05:49] LABS: Basophils # (auto) 0.02 K/uL (0-0.2); Basophils % (auto) 0.2 %; Eosinophils # (auto) 0.09 K/uL (0-0.50); Eosinophils % (auto) 0.7 %; Hematocrit (blood only) 37.2 % (37.0-47.0); Hemoglobin 12.9 g/dl (12.0-16.0); Immature Granulocytes # (auto) 0.04 K/uL (0.01-0.20); Immature Granulocytes % (auto) 0.3 %; Lymphocytes # (auto) 1.63 K/uL (1.2-3.4); Lymphocytes % (auto) 13.5 %; Mean Corpuscular Hemoglobin 31.1 pg (25.0-34.0); Mean Corpuscular Hgb Conc 34.7 g/dL (32.0-36.0); Mean Corpuscular Volume 89.6 fL (80.0-100.0); Mean Platelet Volume 9.8 fL (9.4-12.4); Monocytes # (auto) 0.53 K/uL (0.11-0.59); Monocytes % (auto) 4.4 %; Neutrophils # (auto) 9.75 K/uL (1.40-6.50); Neutrophils % (auto) 80.9 %; Platelet Count 230 K/uL (130-400); RDW Coefficient of Variation 14.8 % (11.5-14.5); RDW Standard Deviation 48.9 fL (36.4-46.3); Red Blood Count 4.15 M/uL (4.20-5.40); White Blood Count 12.06 K/ul (4.8-10.8)
[2023-02-13] MEDS ORDERED: CITRIC ACID/SODIUM CITRATE 15 ML UDC PO SCH (06:00)
[2023-02-13] MEDS ORDERED: LACTATED RINGER'S 1,000 ML IV SCH (06:00)
[2023-02-13] MEDS ORDERED: ceFAZolin 2,000 MG in SYRINGE 0 ML IV SCH (06:00)
[2023-02-13] MEDS ORDERED: fentaNYL citrate PF 100 MCG/2 ML VIAL ONE (06:54)
[2023-02-13] MEDS ORDERED: ONDANSETRON INJ 2 MG/ML 2 ML VIAL ONE (06:54)
[2023-02-13] MEDS ORDERED: MoRPHine SULFATE PF 1 MG/ML 10 ML AMP/VIAL ONE (06:54)
[2023-02-13] MEDS ORDERED: OXYTOCIN 10 UNITS/ML VIAL ONE (06:54)
[2023-02-13] MEDS ORDERED: PHENYLEPHRINE 100MCG/ML 5ML SYR ONE (06:54)
[2023-02-13] MEDS ORDERED: MIDAZOLAM HCL 1 MG/ML 2ML VIAL ONE (08:35)
[2023-02-13] MEDS ORDERED: SENNA 8.6 MG TAB PO PRN (08:51)
[2023-02-13] MEDS ORDERED: ONDANSETRON INJ 2 MG/ML 2 ML VIAL IV PRN ×2 (08:51→08:56)
[2023-02-13] MEDS ORDERED: DIPHTHERIA/TETANUS/PERTUSSIS Vaccine (Tdap, Age 7+yrs) 0.5mL SYR/VL IM ONE (08:51)
[2023-02-13] MEDS ORDERED: MAGNESIUM HYDROXIDE SUSP 30 ML UDC PO PRN (08:51)
[2023-02-13] MEDS ORDERED: HYDROCORTISONE ACETATE 25 MG SUPP PR PRN (08:51)
[2023-02-13] MEDS ORDERED: BENZOCAINE 20% AER SPR 82.5 GM CAN EXT PRN (08:51)
[2023-02-13] MEDS ORDERED: NALOXONE HCL 1 MG in SODIUM CHLORIDE 0.9% 1000ML 1,000 ML IV PRN (08:56)
[2023-02-13] MEDS ORDERED: NALOXONE HCL 0.08 MG in SYRINGE 1.8 ML IV PRN (08:56)
[2023-02-13] MEDS ORDERED: NALOXONE HCL 0.4 MG/1 ML VIAL/CARP IV PRN (08:56)
[2023-02-13] MEDS ORDERED: NALBUPHINE HCL INJ 10 MG/ML AMP IV PRN (08:56)
[2023-02-13] MEDS ORDERED: diphenhydrAMINE 50 MG/ML VIAL IV PRN (08:56)
[2023-02-13] MEDS ORDERED: ePHEDrine sulfate 50 MG/ML AMP IV PRN (08:56)
[2023-02-13] MEDS ORDERED: PROMETHAZINE HCL 6.25 MG in SODIUM CHLORIDE 0.9% 50 ML IV PRN (08:56)
[2023-02-13] MEDS ORDERED: MoRPHine SULFATE PF 1 MG/ML 10 ML AMP/VIAL INT SPINAL ONE (08:56)
[2023-02-13] MEDS ORDERED: HYDROmorphone INJ 0.5 MG/0.5 ML SYR IV PRN (08:56)
[2023-02-13] MEDS ORDERED: LACTATED RINGER'S 500 ML IV PRN (08:56)
--- NOTE | 2023-02-13 08:58 | Anesthesiology Progress Note ---
Date of Service February 13, 2023 Anesthesia Post Procedure Vital Signs Vital Signs: Temp Pulse Resp BP Pulse Ox 02/13/23 08:51 46 L 97 02/13/23 08:52 45 L 139/69 02/13/23 05:53 36.6 C 68 20 115/66 02/13/23 05:44 36.6 C 68 18 115/66 Transfer of Care Handoff Completed per policy Notes Mental Status: alert / awake / arousable and participated in evaluation Patient Amnestic to Procedure: No Nausea / Vomiting: adequately controlled Pain: adequately controlled Airway Patency, RR, SpO2: stable & adequate BP & HR: stable & adequate Hydration State: stable & adequate Neuraxial Anesthesia: was administered and sensory block is resolving Anesthetic Complications: no major complications apparent and Pt Satisfied with anesthetic care
[2023-02-13] MEDS ORDERED: DC INTRASPINAL MORPHINE SCH (09:00)
[2023-02-13] MEDS ORDERED: SODIUM CHLORIDE 0.9% 1000ML 1,000 ML IV SCH (09:00)
[2023-02-13] MEDS ORDERED: NO NARCOTICS OR SEDATIVES SCH (09:00)
--- NOTE | 2023-02-13 09:09 | History & Physical Bridge Note ---
Date of Service February 13, 2023 History & Physical Bridge Note I have examined the patient, reviewed the History & Physical and in the interval since the performance of the History & Physical I have noted the following changes of clinical significance: no changes noted
--- NOTE | 2023-02-13 09:11 | Post Operative Brief Note ---
Immediate Post Op Note v1 Date of Surgery February 13, 2023 Pre & Post Diagnosis Operation Date: 02/13/23 07:30 Pre-Op Diagnosis: Repeat Section Post-Op Diagnosis: Repeat Section I identified the patient and participated in the time-out.: Yes Procedure Operation Date: 02/13/23 07:30 Actual Procedures p Section in LD - Sly Albarran MD Surgeon Sly Albarran MD Director Outcomes Yeny Mitchell Estimated Blood Loss 400 Findings Consistent with Post-Op Diagnosis Live female Apgars 9/9 weight 5-15 Fluids LR 1200 ml. Specimens placenta Drains Adkins Catheter Anesthesia Type Spinal Complications none Disposition Accompanied Patient To Recovery: Yes Overlapping Procedure I was present for: the critical portions of procedure. I was immediately available: during the entire case. Back up surgeon: was not required during procedure.
[2023-02-13] MEDS: OXYTOCIN 20 UNITS in LACTATED RINGER'S 1,000 ML IV SCH ×2 (11:51→20:40)
[2023-02-13] MEDS: KETOROLAC 30 MG/ML VIAL IV PRN ×2 (12:16→20:23)
--- NOTE | 2023-02-13 12:59 | Operative Report ---
Post Operative Report Pre & Post Diagnosis Operation Date: 02/13/23 07:30 Pre-Op Diagnosis: Repeat Section Post-Op Diagnosis: Repeat Section I identified the patient and participated in the time-out.: Yes Procedure Operation Date: 02/13/23 07:30 Actual Procedures p Section in LD - Sly Albarran MD Surgeon Sly Albarran MD Secondary School Teacher Yeny Mitchell Estimated Blood Loss 400 Findings Consistent with Post-Op Diagnosis Fluids LR 1200 ml. Specimens placenta Drains Adkins Anesthesia Type Spinal Complications none Indications elective repeat Description of Procedure Dr. Albarran dictating operative note on Rojelio Ulrich. Antibiotics were given preop a timeout was called prior to start of procedure description procedure under satisfactory spinal anesthesia the patient was prepped draped usual sterile fashion a low Pfannenstiel incision through her prior scar was then made entering into the abdominal cavity in successive layers without difficulty. Plan to use the peritoneal cavity the incision was widened in the AP diameter the amniotic sac was then nicked with Allis clamp was found to be clear the was then delivered from the vertex presentation with the aid of fundal pressure the cord was doubly clamped and cut baby handed to sheet metal duct installer helper present for the delivery Apgars were 9 and 9 weight pending Cord blood was then obtained placenta was then delivered spontaneously and intact and submitted to pathology. The uterus was then exteriorized ring forceps were then placed on both angles the inferior margin another lap pad was then used to grasp the uterus and another lap pad was used to clean the inside of the uterus of all clots and debris. Uterus was closed in double layer closure starting with a 0 Vicryl suture in a continuous interlocking fashion followed by a second imbricating suture of 0 Vicryl suture. The initial sponge needle and instrument count were found to be correct. The tubes ovaries bilaterally were found to be within normal limits. The contents of the abdominal cavity were then irrigated to clear no active bleeding was noted. The uterus was then placed back into the normal anatomical position. The fascia was then reapproximated from both ends using 0 Vicryl's suture in a continuous fashion. Subcuticular layer was then irrigated and the subcuticular layer was then closed with 3-0 plain suture. The patient was starting to get uncomfortable due to wearing off of the spinal. Adonis were then used to reapproximate the skin. Clear urine was noted at the end of the procedure 100 mL the estimated blood loss was 400 mL and total fluids were 1200 mL. The final sponge, needle and instrument count being correct the patient was then placed supine on a stretcher andmoved to the recovery room in stable condition end of dictation on Rojelio Ulrich thank you I attest to the content of the Intraoperative Record and any orders documented therein. Any exceptions are noted below. The executive sales assistant was necessary to provide retraction, assist with fundal pressure to deliver the babies head, to help repair the uterus and abdominal wall layers.
[2023-02-13] MEDS: SIMETHICONE 80 MG CHEW PO SCH ×3 (14:03→20:21)
[2023-02-13] MEDS: DOCUSATE SODIUM 100 MG CAP PO SCH (20:21)
[2023-02-14] MEDS ORDERED: PROMETHAZINE HCL 25 MG in SODIUM CHLORIDE 0.9% 50 ML IV PRN (02:57)
[2023-02-14] MEDS ORDERED: diphenhydrAMINE 50 MG/ML VIAL IV PRN (02:57)
[2023-02-14] MEDS ORDERED: MEPERIDINE HCL 50 MG/ML CARP IV PRN (02:57)
[2023-02-14] MEDS ORDERED: KETOROLAC 30 MG/ML VIAL IV PRN (02:57)
[2023-02-14] MEDS ORDERED: diphenhydrAMINE Capsule 25 MG CAP PO PRN (02:57)
[2023-02-14 06:28] LABS: Basophils # (auto) 0.01 K/uL (0-0.2); Basophils % (auto) 0.1 %; Eosinophils # (auto) 0.08 K/uL (0-0.50); Eosinophils % (auto) 0.7 %; Hematocrit (blood only) 32.4 % (37.0-47.0); Hemoglobin 11.1 g/dl (12.0-16.0); Immature Granulocytes # (auto) 0.04 K/uL (0.01-0.20); Immature Granulocytes % (auto) 0.3 %; Lymphocytes # (auto) 1.61 K/uL (1.2-3.4); Lymphocytes % (auto) 13.4 %; Mean Corpuscular Hemoglobin 31.3 pg (25.0-34.0); Mean Corpuscular Hgb Conc 34.3 g/dL (32.0-36.0); Mean Corpuscular Volume 91.3 fL (80.0-100.0); Mean Platelet Volume 10.4 fL (9.4-12.4); Monocytes # (auto) 0.64 K/uL (0.11-0.59); Monocytes % (auto) 5.3 %; Neutrophils % (auto) 80.2 %; Platelet Count 183 K/uL (130-400); RDW Coefficient of Variation 14.9 % (11.5-14.5); RDW Standard Deviation 50.4 fL (36.4-46.3); Red Blood Count 3.55 M/uL (4.20-5.40); White Blood Count 11.98 K/ul (4.8-10.8)
[2023-02-14] MEDS: oxyCODONE/ACETAMINOPHEN 5mg/325mg TAB PO PRN ×3 (07:57→23:40)
[2023-02-14] MEDS: IBUPROFEN 600 MG TAB PO PRN ×3 (07:58→23:40)
[2023-02-14] MEDS: FERROUS SULFATE 325 MG TAB PO SCH (08:06)
[2023-02-14] MEDS: DOCUSATE SODIUM 100 MG CAP PO SCH ×2 (08:06→20:05)
[2023-02-14] MEDS: SIMETHICONE 80 MG CHEW PO SCH ×4 (08:06→20:05)
[2023-02-14] MEDS: PRENATAL VITAMIN 1 TAB PO SCH (08:06)
--- NOTE | 2023-02-14 08:42 | Obstetrical Progress Note ---
Date of Service February 14, 2023 Assessment & Plan (1) Encounter for pre-operative examination: Present on Admission?: No (2) Anxiety: Present on Admission?: Yes (3) Vaginal delivery: Present on Admission?: No Plan routine care discharge plan for tomorrow Ordered Zoloft 50 mg daily Day #:: 1 Subjective Ambulation: ambulating normally Voiding: no voiding problems Lochia:: Moderate Review of Systems All systems reviewed & are unremarkable except as noted in HPI & below Physical Exam Constitutional WD/WN, vitals as above well developed Genitourinary normal lochia deferred Results & Data Vital Signs (Past 12 Hours) Vital Signs Temp Pulse Resp BP Pulse Ox O2 Del Method 02/14/23 03:45 36.7 C 57 L 17 105/65 97 Room Air 02/14/23 01:15 15 97 02/14/23 00:15 15 95 02/13/23 23:15 15 99 02/13/23 23:45 36.7 C 51 L 16 126/73 99 Room Air 02/13/23 22:15 16 96 02/13/23 21:15 16 95 Supervising Physician Co-Signing Physician Notes Ian Henning MD
--- NOTE | 2023-02-14 08:43 | Obstetrical Progress Note ---
Date of Service February 14, 2023 Results & Data Vital Signs (Past 12 Hours) Vital Signs Temp Pulse Resp BP Pulse Ox O2 Del Method 02/14/23 03:45 36.7 C 57 L 17 105/65 97 Room Air 02/14/23 01:15 15 97 02/14/23 00:15 15 95 02/13/23 23:15 15 99 02/13/23 23:45 36.7 C 51 L 16 126/73 99 Room Air 02/13/23 22:15 16 96 02/13/23 21:15 16 95
[2023-02-14] MEDS ORDERED: SERTRALINE HCL 50 MG TABLET PO ONE (09:15)
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
[2023-02-14] MEDS ORDERED: bisacodyL 5 MG TABEC PO SCH (20:00)
[2023-02-15] MEDS: oxyCODONE/ACETAMINOPHEN 5mg/325mg TAB PO PRN (06:14)
[2023-02-15] MEDS: IBUPROFEN 600 MG TAB PO PRN (06:14)
[2023-02-15 07:01] LABS: Hematocrit (blood only) 34.7 % (37.0-47.0); Hemoglobin 11.6 g/dl (12.0-16.0)
[2023-02-15] MEDS ORDERED: bisacodyL 10 MG SUPP PR PRN (08:51)
[2023-02-15] MEDS: FERROUS SULFATE 325 MG TAB PO SCH (09:25)
[2023-02-15] MEDS: PRENATAL VITAMIN 1 TAB PO SCH (09:25)
[2023-02-15] MEDS: SIMETHICONE 80 MG CHEW PO SCH ×2 (09:25→13:21)
[2023-02-15] MEDS: DOCUSATE SODIUM 100 MG CAP PO SCH (09:25)
--- NOTE | 2023-02-15 10:00 | Obstetrical Progress Note ---
Date of Service February 15, 2023 Subjective Ambulation: ambulating normally Voiding: no voiding problems Passing Gas:: Yes Diet Tolerance:: regular diet Lochia:: Small Feeding Type:: breast feeding Current Pain Level(1-10): 0 doing well Physical Exam Constitutional WD/WN, vitals as above Gastrointestinal (Abdomen) Inspection/Auscultation: abdomen normal to inspection incision c/d/i Musculoskeletal Extremities: extremities normal to inspection Skin no rashes, warm and dry Neurologic patellar DTR's 2+ bilat, sensation intact Psychiatric A+Ox3, euthymic affect Results & Data Vital Signs (Past 12 Hours) Vital Signs Temp Pulse Resp BP Pulse Ox O2 Del Method 02/14/23 23:06 36.4 C L 64 16 104/62 100 Room Air Laboratory Results 02/13/23 02/13/23 02/13/23 05:30 05:35 05:35 WBC 12.06 H RBC 4.15 L Hgb 12.9 Hct 37.2 MCV 89.6 MCH 31.1 MCHC 34.7 RDW Std Deviation 48.9 H RDW Coeff of Naheed 14.8 H Plt Count 230 MPV 9.8 Immature Gran % (Auto) 0.3 Neut % (Auto) 80.9 Lymph % (Auto) 13.5 [place] % (Auto) 4.4 Eos % (Auto) 0.7 Baso % (Auto) 0.2 Neut # (Auto) 9.75 H Lymph # (Auto) 1.63 [place] # (Auto) 0.53 Eos # (Auto) 0.09 Baso # (Auto) 0.02 Immature Gran # (Auto) 0.04 SARS-CoV-2, RNA, NAAT NEGATIVE Blood Type A Positive Antibody Screen NEGATIVE 02/14/23 02/15/23 05:53 06:24 WBC 11.98 H RBC 3.55 L Hgb 11.1 L 11.6 L Hct 32.4 L 34.7 L MCV 91.3 MCH 31.3 MCHC 34.3 RDW Std Deviation 50.4 H RDW Coeff of Naheed 14.9 H Plt Count 183 MPV 10.4 Immature Gran % (Auto) 0.3 Neut % (Auto) 80.2 Lymph % (Auto) 13.4 [place] % (Auto) 5.3 Eos % (Auto) 0.7 Baso % (Auto) 0.1 Neut # (Auto) 9.60 H Lymph # (Auto) 1.61 [place] # (Auto) 0.64 H Eos # (Auto) 0.08 Baso # (Auto) 0.01 Immature Gran # (Auto) 0.04 SARS-CoV-2, RNA, NAAT Blood Type Antibody Screen
[2023-02-15] MEDS ORDERED: SERTRALINE HCL 50 MG TABLET PO SCH ×2 (11:10→11:15)
--- NOTE | 2023-02-15 11:11 | Communication Note ---
Date of Service: February 15, 2023 Clarification--Patient received a 1 time dose of Zoloft 50 mg yesterday. Seems like may be deciding to lean more toward formula feed. Does not appear Zoloft was ordered for this am so will give a 25 mg now dose with plan for temporary rx of #7 sent to pharmacy on file as a courtesy to OB to continue until is in contact with prescriber at [facility] to discuss options. Has appointments with therapist and prescriber next week.
[2023-02-16] MEDS ORDERED: SERTRALINE HCL 50 MG TABLET PO SCH (09:00)
--- NOTE | 2023-02-22 09:56 | Discharge Summary ---
Date of Service February 22, 2023 Admission HPI Per Admitting Provider routine elective repeat Discharge Data Consultations 02/13/23 05:24 Consult Anesthesiology Stat 02/14/23 11:07 Consult Psychiatry Routine Procedures Performed Operation Date: 02/13/23 07:30 Actual Procedures p Section in LD - Sly Albarran MD Hospital Course (1) Encounter for pre-operative examination: (2) delivery delivered: Plan uncomplicated hospital course Live female Apgars 9/9 weight 5lb. 15 oz. Discharge Plan Discharge Items Patient Disposition: Home - Self-Care Reason For Visit: Previous Section Discharge Diagnosis: term delivered by repeat Condition on Discharge: Good Activity: As commented below Lifting: No more than 10 pounds Bathing: No limitations Sexual Activity: Wait until after follow-up appointment Exercise/Sports: Gradually increase as tolerated Driving/Machine Use: Resume 3 days after discharge Non-emergency contact: Primary Care Provider Call non-emergency contact if: your pain is not controlled Follow-up/Referrals: Amy Scott [facility] [Outside] - 02/22/23 10:15 am (Therapy with Yeny on 02/19 via telehealth Medication f/u with Kya Viramontes PA-C on 02/22 @ 1015 via telehealth ) PCP,NO [Primary Care Provider] - Diet: Regular OB Addtl Attending Provider Instructions: ACTIVITY RECOMMENDATIONS: * Gradual return to full activity over the next 2-3 weeks. * No lifting - nothing heavier than baby over the next 2-3 weeks. * Do not engage in vigorous exercise, sexual activity or sports until cleared by your physician. * Do not drive or operate any motorized equipment until cleared by your physician. * You may shower/bathe daily. BREAST CARE: If you are not breast feeding: * Wear a supportive bra 24 hours a day for one to two weeks. * Avoid stimulating your breasts and nipples as much as possible during the first few weeks after delivery. * When taking a shower, have the warm water hit your back, not breasts. * When your breasts feel full, apply ice packs. Usually three to four times a day helps ease the discomfort. * Take a mild pain medication (Tylenol/Motrin) when you are uncomfortable. If breast feeding: * Use breast milk to lubricate nipples. Lansinoh cream may be used for sore nipples. You do not need to remove cream prior to breast feeding. If using a different brand of cream, check the label for directions regarding removal of cream prior to nursing. * Wear a supportive bra. * If having problems with breasts or breast feeding, call a healthcare consultant or your health care provider. EPISIOTOMY CARE: After delivery, if you have an episiotomy (stitches), the following steps will ease discomfort and aid healing. * For the first 24 hours after delivery, place ice packs next to your episiotomy to help reduce swelling. * After the first 24 hour-period, sitz baths, either portable or in the tub, are suggested. A shower with a shower arm sprayed over the episiotomy may be comforting. * Andreea care should be done after each voiding and bowel movement. Squirt warm water from a plastic bottle over the perineum (region of the body between the anus and urinary opening) and pat dry. * Use Dermoplast to ease discomfort. Shake container. Miracle directly over the episiotomy. * Place a Tucks on a clean sanitary pad next to your episiotomy. OVER THE COUNTER MEDICATION: * For discomfort or pain, you may use Acetaminophen (Tylenol), Ibuprofen (Advil), or Naproxen (Aleve) following the package directions. * For constipation you may use Colace following the package directions. SPECIAL CARE INSTRUCTIONS: When you are discharged from the hospital, it is important for you to follow the instructions listed below: * During the first week at home, you should be able to care for yourself and your baby. In addition, the usual light household activities are enc ouraged. * Limit your activities to the way you feel. Do not try to clean the house or move furniture. Be sensible. * If you actively engage in sports and have done so up until the time of your delivery, you may resume these activities as soon as you feel able. This may take up to one month or even longer. Use good judgment. * Continue to take your vitamins for at least six weeks after the of your baby. * Your diet need not be limited unless you were on a special diet before your delivery. Breast-feeding mothers need around 2500 calories per day and at least 64-80 ounces of fluid per day (8 to 10 glasses). * You should eat foods from the four major food groups. Crash diets or fad diets are to be avoided. Eating lean meats, fresh fruits and vegetables, low-fat dairy products, high fiber foods and a regular exercise program, will help you get back to your pre- weight without putting your health at risk. * Constipation is sometimes a problem after delivery. Take a mild laxative as needed. If breast feeding, Milk of Magnesia is acceptable to use. You may use a suppository or Fleets enema if no episiotomy. * A daily shower or tub bath is suggested. Be sure to thoroughly and gently dry the perineum. * A bloody vaginal discharge will usually continue until around four weeks post . A small amount of bleeding may continue for as long as six weeks. Vaginal discharge changes from the bright red bleeding after delivery to pink then brownish and finally yellowish-pink before becoming white and disappearing. * Bleeding may increase with activity. Your first period may come in 4-8 weeks. If you are breast feeding, your period may be delayed even longer. * Keiser (sex) can begin whenever both you and your partner feel comfortable and do not have any form of genital infection. It is recommended that you wait until after your return appointment and discuss with your physician. If you have questions, please talk to your health care practitioner. A condom should be used to prevent infection and . * Foreplay, gentle intercourse and lubrication is very important the first several times to prevent pain. A water-based lubricant such as K-Y jelly or Astroglide may be used. * Tampons may be used six weeks after delivery. * Douching should be avoided for 6 weeks after delivery. * If you have RH negative blood and your baby is RH positive, you will receive RHOGAM by injection prior to discharge. The nurse will give you a card to keep with you that has the date and place that you received RHOGAM after delivery. * During your care, you had a Rubella screen done to check for the presence of rubella antibodies in your blood. If your test was negative, you will receive a Rubella vaccine prior to discharge. This vaccine may cause a fever, soreness at the injection site and flu-like symptoms. If these symptoms persist, notify your health care practitioner. is not advised for three months after a Rubella vaccine. There is a higher chance of having a baby with defects if conceived within three months of getting the vaccine. * If you were discharged 24 hours from delivery or before 48 hours: Visiting nurses will come to your home 48 hours after discharge to assess you and your baby. The visiting nurse will meet with you while you are in the hospital to arrange a time and get directions to your home. * Verbalizes understanding of car seat law as reviewed with patient nursing. * Car Seat hand-out given and reviewed with patient by nursing. * Shaken baby information reviewed with patient by nursing. Call you doctor if: * Heavy bleeding (saturating several pads an hour) or passing clots the size of your fist. * A fever >101 degrees F (38.3 degrees C) on two occasions four hours apart and/or chills. * Unusual pain in the pelvic or vaginal areas. * "Baby Blues" lasting longer than two weeks. If you have any questions or concerns, call your health care practitioner at . FOLLOW-UP VISIT: * Please call the office at to schedule 3 and 6 week examination. It is important you keep this appointment. * It is important for you to make arrangements for either yearly or twice yearly check-ups thereafter. Pending Studies at Discharge: No Stand-Alone Forms: My [facility], Smoking Cessation Medications and DC Order Prescriptions: New oxycodone-acetaminophen [Percocet] 5-325 mg Tablet 1 tab PO Q4H PRN (Reason: pain) Qty: 10 0RF ibuprofen 600 mg Tablet 600 mg PO Q6H PRN (Reason: fever or pain) Qty: 30 2RF Continued 28-800 mg-mcg Tablet 1 tab PO QAM ferrous sulfate 325 mg (65 mg iron) tablet,delayed release (DR/EC) 325 mg PO QAM metronidazole 0.75 % (37.5mg/5 gram) Gel 1 appful VAGINAL DAILY Rx Instructions: x5 days sertraline [Zoloft] 25 mg Tablet 25 mg PO QAM Qty: 7 0RF Discharge Orders: Discharge Order (Routine); Ordered 02/15/23 Ordered By: Sly Vitale/Other Patient Handouts: Depression, Preventing Deep Vein Thrombosis Admission Data Admit Date/Time: 02/13/23 05:24 Attending Provider: Sly Albarran Admit Provider: Sly Albarran Primary Care Provider: PCP,NO Other Providers: Kiersten Archibald Other Interventions: Discharge Summary Assessment (RN) Last Done: 02/15/23 12:10 Coding Level of Care Code 07771 IN/OBS DISCH 30 MIN/LESS Diagnoses Encounter for pre-operative examination Z01.818 delivery delivered O82
== END 2023-02-15 14:00 | disposition home or self-care (01) | DRG 788 ==
LOC: 4S1 05:24 → EDSTATUS 07:30 → 4E2 12:15